=== PATIENT | male | born 1990 | race American Indian/Alaskan Native ===

== ENCOUNTER 2019-12-08 19:45 | Emergency (ER) | payer MEDICAID, OTHER ==
--- NOTE | 2019-12-08 20:39 | CR ---
PROCEDURE INFORMATION: Exam: XR Right Knee Exam date and time: 12/08/2019 7:54 PM Age: 29 years old Clinical indication: Injury or trauma; Fall; Initial encounter; Abrasion; Knee; Right TECHNIQUE: Imaging protocol: XR Right knee. Views: 3 views. COMPARISON: No relevant prior studies available. FINDINGS: Bones/joints: Small bone fragment lateral to the proximal tibia, small avulsion fracture cannot be ruled out. No dislocation. Normal bone mineralization. Soft tissues: No soft tissue swelling. No radiopaque foreign body. IMPRESSION: Small bone fragment lateral to the proximal tibia, small avulsion fracture cannot be ruled out. Recommend clinical correlation.
[2019-12-08] MEDS ORDERED: Acetaminophen/HYDROcodone 325-10 MG Tab PO ONE (21:01)
--- NOTE | 2019-12-08 21:10 | EDM.PDOC ---
ED HPI GENERAL MEDICAL PROBLEM - General Chief Complaint: Lower Extremity Injury/Pain Stated Complaint: TWISTED RIGHT KNEE, CANT BEND IT OR WALK ON IT Time Seen by Provider: 12/08/19 19:56 Source of Information: Reports: Patient History Limitations: Reports: No Limitations - History of Present Illness INITIAL COMMENTS - FREE TEXT/NARRATIVE: twisted knee CURATOR. Right Knee Pain Score (Numeric/FACES): 7 - Related Data Allergies Allergy/AdvReac Type Severity Reaction Status Date / Time No Known Allergies Allergy Verified 12/08/19 19:55 Home Meds: Home Meds . [No Known Home Meds] 12/08/19 [History] Past Medical History - Past Health History Medical/Surgical History: Denies Medical/Surgical History Dermatologic History: Reports: None Social & Family History - Family History Family Medical History: Noncontributory - Tobacco Use Smoking Status *Q: Unknown Ever Smoked Second Hand Smoke Exposure: No - Caffeine Use Caffeine Use: Reports: Coffee, Energy Drinks, Soda - Recreational Drug Use Recreational Drug Use: No Review of Systems - Review of Systems Review Of Systems: Comprehensive ROS is negative, except as noted in HPI. ED EXAM, GENERAL - Physical Exam Exam: See Below Exam Limited By: No Limitations General Appearance: Alert, WD/WN, Mild Distress, Other (pain) Ears: Hearing Grossly Normal Throat/Mouth: Normal Voice, No Airway Compromise Head: Atraumatic Neck: Non-Tender, Full Range of Motion Respiratory/Chest: No Respiratory Distress Cardiovascular: Regular Rate, Rhythm GI/Abdominal: Soft, Non-Tender (Male) Exam: Deferred Rectal (Males) Exam: Deferred Extremities: Joint Swelling, Limited Range of Motion, Other (right knee tender R/P, NV wnl, gait limited to pain) Neurological: Alert, Oriented, Normal Cognition, No Motor/Sensory Deficits Psychiatric: Tearful Skin Exam: Warm, Dry, Normal Color Lymphatic: No Adenopathy Course - Vital Signs Last Recorded V/S: Last Vital Signs Temp 36.1 C 12/08/19 20:03 Pulse 99 12/08/19 20:03 Resp 16 12/08/19 20:03 BP 127/93 H 12/08/19 20:03 Pulse Ox 99 12/08/19 20:03 - Orders/Labs/Meds Meds: Medications Discontinued Medications Generic Name Dose Route Start Last Admin Trade Name Freq PRN Reason Stop Dose Admin Hydrocodone Bitart/Acetaminophen 1 tab 12/08/19 21:01 [place] 325-10 Mg PO 12/08/19 21:02 ONETIME ONE Departure - Departure Time of Disposition: 21:08 Disposition: Home, Self-Care 01 Condition: Good Clinical Impression: Knee fracture, right - Discharge Information Additional Instructions: 1) wear knee immobilizer and use crutches till see ORTHO 2) see clinic tomorrow for ORTHOPEDIC REFERRAL for avulsion fracture of knee 3) elevate leg as much as possible rx given; vicodin 5/325mg tid prn x 12 Sepsis Event Note (ED) - Evaluation Sepsis Screening Result: No Definite Risk - Focused Exam Vital Signs: Vital Signs Temp Pulse Resp BP Pulse Ox 12/08/19 20:03 36.1 C 99 16 127/93 H 99
== END 2019-12-08 21:25 | disposition home or self-care (01) ==
LOC: DL.ED 19:49
DX: S82.001A Unspecified fracture of right patella, initial encounter for closed fracture (principal); X50.1XXA Overexertion from prolonged static or awkward postures, initial encounter
CPT/HCPCS: 73562; 99283; A9270